=== PATIENT | male | born 1970 | race Caucasian/White ===

== ENCOUNTER 2018-10-05 17:40 | Observation (INO) | payer SELFPAY ==
[2018-10-05] VITALS (7 sets, daily range): BP systolic 136–162; BP diastolic 83–107
[~2018-10-05] VITALS: Ht 175.3 cm; Wt 82.7 kg
--- NOTE | ~2018-10-05 | HEMODYNAMI ---
PATIENT:SCARLETT CONTRERAS MEDICAL RECORD: [id number] : 70 LOCATION:[address] ADMISSION DATE: 10/05/18 Generatedon:10/06/20189:31 Patient name: SCARLETT CONTRERAS Patient #: [id number] SSN: : 1970 Date of study: 10/06/2018 Page: Of Hemodynamic Procedure Report Patient Data Patient Demographics Procedure consent was obtained First Name: SCARLETT Gender: Male Last Name: BEN : 1970 Patient #: [id number] Age: 47 year(s) Race: Unknown Additional ID: [id number] Contact details Address: [address] [place] [address] State: [place] City: [facility] Zip code: [address] Past Medical History Allergies: No known allergies Admission Admission Data Admission Date: 10/05/2018 Admission Time: 22:17 Room #: D2117 Lab Results Lab Result Date: 10/06/2018 Lab Result Time: 0:00 Biochemistry Name Units Result Min Max BUN mg/dl 16 --(---*)-- 7 18 Creatinine mg/dl 1.2 --(---*)-- 0.6 1.3 CBC Name Units Result Min Max Hemoglobin g/dl 16.8 --(---*)-- 13.5 17.5 Procedure Procedure Types Cath Procedure Diagnostic Procedure [facility] w/Coronaries PCI Procedure Coronary Stent Coronary Stent Initial Procedure Description Procedure Date Procedure Date: 10/06/2018 Procedure Start Time: 9:08 Procedure End Time: 9:30 Procedure Staff Name Function Justin Beasley MD Performing Physician Patricia Valentin RT Scrub Irma Hopkins RN Nurse Alexa Morales RT Monitor Procedure Data Cath Procedure Fluoroscopy Diagnostic fluoroscopy Total fluoroscopy Time: 5.2 time: 5.2 min min Diagnostic fluoroscopy Total fluoroscopy dose: 747 dose: 747 mGy mGy Contrast Material Contrast Material Type Amount (ml) Isovue 300 104 Entry Location Entry Primary Successful Side Size Upsize Upsize Entry Closure Succes sful Closure Location (Fr) 1 (Fr) 2 (Fr) Remarks Device Remarks Femoral Right 5 Fr 6 Fr Exoseal artery Short Estimated blood loss: 10 ml Diagnostic catheters Device Type Used For End Catheter Placement MULTIPACK JL 4.0 5Fr Procedure catheter MULTIPACK 3DRC 5Fr Procedure catheter MULTIPACK Pigtail 5 Fr Procedure catheter Procedure Complications No complications Procedure Medications Medication Administration Route Dosage 0.9% NaCl I.V. 100 ml/hr Oxygen etCO2 Nasal cannula 2 l/min Lidocaine 2% added to field 20 Heparin Flush Bag added to field 2 bags (1000units/500ml NS) Versed I.V. 2 mg Fentanyl I.V. 50 mcg Versed I.V. 2 mg Fentanyl I.V. 50 mcg Heparin Bolus I.V. 5000 units Plavix P.O. 75 mg Hemodynamics Rest HGB: 16.8 (g/dl) Heart Rate: 97 (bpm) Pressure Samples Time Site Value (mmHg) Purpose Heart Use Rate(bpm) 9:14 LV 108/2,1 Snapshot 97 9:14 AO 116/87(103) Pullback 99 Gradients Valve Time Site Site 2 Mean SEP/DFP Peak To Heart Use 1 (mmHg) (sec/min) Peak Rate (mmHg) (bpm) Aortic 9:14 LV AO 1 11 99 116/87(103) Calculations Valve P-P Mean Valve Index Valve Source Name Gradient Area Flow (cm2) Aortic 1 1 Snapshots Pre Cath Intra NCS Post Cath Vital Signs Time Heart Resp SPO2 etCO2 NIBP (mmHg) Rhythm Pain Sedation Rate (ipm) (%) (mmHg) Status Level (bpm) 9:01:00 97 16 99 37.3 142/90(110) NSR 0 (11) 10(A) , No pain 9:05:20 95 14 98 39.6 144/93(107) NSR 0 (11) 10(A) , No pain 9:09:36 92 17 96 42.6 140/92(112) NSR 0 (11) 10(A) , No pain 9:14:29 100 20 96 30.6 141/100(114) NSR 0 (11) 9(A) , No pain 9:18:47 94 13 97 35.8 138/100(117) NSR 0 (11) 9(A) , No pain 9:23:03 100 12 97 11.9 145/95(112) NSR 0 (11) 9(A) , No pain 9:27:23 95 10 98 11.2 145/97(115) NSR 0 (11) 10(A) , No pain Medications Time Medication Route Dose Verified Delivered Reason Notes Effectiveness by by 9:01:30 0.9% NaCl I.V. 100 Justin Irma used for ml/hr [place] [facility] procedure MD OROZCO 9:01:37 Oxygen etCO2 2 Justin Irma used for Nasal l/min [facility] procedure cannula MD OROZCO 9:01:42 Lidocaine 2% added 20ml Justin Anderson for local to vial [facility] anesthetic field MD CURRIE 9:01:46 Heparin Flush added 2 Justin Justin used for Bag to bags [facility] procedure (1000units/500ml field MD CURRIE NS) 9:05:12 Versed I.V. 2 mg Justin Irma for sedation St Torsten Hopkins MD RN 9:05:16 Fentanyl I.V. 50 Justin Irma for sedation mcg St Torsten Hopkins MD RN 9:09:50 Versed I.V. 2 mg Justin Irma for sedation St Torsten Hopkins MD RN 9:09:54 Fentanyl I.V. 50 Justin Irma for sedation mcg St Torsten Hopkins MD RN 9:17:14 Heparin Bolus I.V. 5000 Justin Irma for verifi ed units [facility] anticoagulation with Dr. CURRIE RN Azure 9:28:22 Plavix P.O. 75 mg Justin Irma for [place] [facility] antiplatelet RN therapy Procedure Log Time Note 8:43:35 Signed procedure consent form obtained from patient. 8:43:37 Diagnostic Cath status Elective 8:45:44 Patricia Valentin RT(R) sent for patient. Start room use. 8:54:21 Patient received from Med II to CCL 1 Alert and oriented. Tansferred to table in Supine position. 8:54:23 Warm blankets applied, and josselin hugger turned on for patient comfort. 8:54:23 Correct patient and procedure confirmed by team. 8:54:26 ECG and BP/O2 sat monitors applied to patient. 8:57:36 Pre-procedure instructions explained to patient. 8:57:38 Pre-op teaching completed and patient verbalized understanding. 8:57:46 Family unavailable. 8:57:51 Patient NPO since Midnight. 8:59:43 Vital chart was started 9:01:30 0.9% NaCl 100 ml/hr I.V. was administered by Irma Hopkins RN; used for procedure; 9:01:37 Oxygen 2 l/min etCO2 Nasal cannula was administered by Irma Hopkins RN; used for procedure; 9:01:42 Lidocaine 2% 20ml vial added to field was administered by Justin Beasley MD; for local anesthetic; 9:01:46 Heparin Flush Bag (1000units/500ml NS) 2 bags added to field was administered by Justin Beasley MD; used for procedure; 9:02:38 Patient allergic to No known allergies 9:02:41 Is the patient allergic to Iodine/contrast media? No. 9:02:43 Was the patient premedicated? Yes 9:02:44 Is patient on blood thinner?Yes 9:02:48 Patient diabetic? No. 9:02:59 Snore? Yes 9:03:01 Sleep apnea? No 9:03:03 Deviated septum? No 9:03:05 Opens mouth fully? Yes 9:03:07 Sticks out tongue? Yes 9:03:14 Dentures? Yes in tight 9:03:20 Patient pain scale 0/10 ?. 9:03:28 IV patent on arrival in left forearm with 0.[facility]% [facility]. 9:04:13 Lab Result : Creatinine 1.2 mg/dl 9:04:13 Lab Result : BUN 16 mg/dl 9:04:13 Lab Result : Hemoglobin 16.8 g/dl 9:04:17 Lab results completed and on chart. 9:04:21 Right groin area was prepped with chlora-prep and draped in sterile fashion 9:04:23 Alarms reviewed by R. N. 9:04:24 Sharps counted by scrub and verified by R.N. 9::26 Physician paged 9:04:26 Physician arrived 9::28 --------ALL STOP TIME OUT------ 9:04:30 Final Timeout: patient, procedure, and site verified with staff and physician. All members of the team are in agreement. 9:04:36 Right groin site verified by team. 9:04:40 Maximum allowable Isovue 300 dose 300ml. Physician notified. (300ml for normal creatinines. For patients with creatinine of 1.7 or higher multiply weight(kg) x 5 divided by creatinine.) 9:04:46 Fire Safety Assessment: A--An alcohol-based skin anteseptic being used preoperatively., C--Open oxygen or nitrous oxide is being used., D--An ESU, laser, or fiber-optic light is being used. 9:04:54 Physical assessment completed. ASA score P 2 - A patient with mild systemic disease as per Justin Beasley MD. 9:04:58 Sedation plan: IV Moderate Sedation Medication:Versed, Fentanyl 9:05:03 Use device set Femoral Dx 9:05:05 ACIST Syringe (18091) opened to sterile field. 9:05:05 Bag Decanter (2002S) opened to sterile field. 9:05:06 Medline Cath Pack ([id number]) opened to sterile field. 9:05:06 DIAGNOSTIC WIRE .035 260cm J wire (632197) opened to sterile field. 9:05:08 ACIST Hand Control (66975) opened to sterile field. 9:05:08 ACIST Manifold (58506) opened to sterile field. 9:05:08 DIAGNOSTIC Multipack 5Fr catheter set (RL5863) opened to sterile field. 9:05:12 Versed 2 mg I.V. was administered by Irma Hopkins RN; for sedation; 9:05:12 SHEATH 5FR [place] (PXG192) opened to sterile field. 9:05:16 Fentanyl 50 mcg I.V. was administered by Irma Hopkins RN; for sedation; 9:08:03 Procedure started. 9:08:03 Full Disclosure recording started 9:08:09 Local anesthetic to right femoral artery with Lidocaine 2% by Justin Beasley MD.INITIAL ACCESS ONLY 9:08:20 A 5 Fr sheath was inserted into the Right Femoral artery 9:09:45 J wire advanced. 9:09:50 Versed 2 mg I.V. was administered by Irma Hopkins RN; for sedation; 9:09:54 Fentanyl 50 mcg I.V. was administered by Irma Hopkins RN; for sedation; 9:10:37 A MULTIPACK JL 4.0 5Fr catheter was advanced over the wire and used for Procedure. 9:10:53 LCA angiography performed. 9:11:04 Catheter removed. 9:13:05 A MULTIPACK 3DRC 5Fr catheter was advanced over the wire and used for Procedure. 9:13:15 RCA angiography performed. 9:13:21 Catheter removed. 9:13:30 A MULTIPACK Pigtail 5 Fr catheter was advanced over the wire and used for Procedure. 9:14:30 EF : 55 % 9:15:05 Catheter removed. 9:16:39 SHEATH 6FR [place] (DYF069) opened to sterile field. 9:16:53 Sheath upsized to a 6 Fr Short. 9:17:14 Heparin Bolus 5000 units I.V. was administered by Irma Hopkins RN; for anticoagulation; verified with Dr. Mcdaniel 9:17:36 GUIDE 6FR HS I catheter (LA6HSI) opened to sterile field. 9:17:56 INFLATOR [facility]it BasixCompak (FJ0937) opened to sterile field. 9:17:57 WHISPER 300cm guide wire ([id number]) opened to sterile field. 9:18:09 6 Fr HS1 guide catheter was inserted over the wire 9:18:15 Whisper wire advanced. 9:18:17 Wire advanced across lesion. 9:20:41 Place stent Inflation Number: 1 A LARRY OTW 3.5 x 08 stent ([id number]) was prepped and advanced across the R PAV . The stent was deployed at 14 MARK for 0:23 (min:sec) . 9:22:26 Wire redirected to PLV. 9:24:41 Inflate balloon Inflation number: 2 A EUPHORA 2.0 x 12 Balloon ([id number]) was prepped and advanced across the R PAV , then inflated to 10 MARK for 0:11 (min:sec) . 9:25:56 Inflation number: 3 The EUPHORA 2.0 x 12 Balloon ([id number]) was reinflated across the R PAV , to 10 MARK for 0:16 (min:sec) . 9:26:48 Balloon removed over the wire. 9:26:49 Wire removed. 9:27:00 EXOSEAL 6Fr (EX600) opened to sterile field. 9:27:05 Guide catheter removed. 9:27:18 Sheath removed intact; hemostasis achieved with Exoseal to the Right Femoral artery. 9::22 Procedure ended.(Physican Out) :: Plavix 75 mg P.O. was administered by Irma Hopkins RN; for antiplatelet therapy; :: Fluoroscopy time 05.20 minutes. :: Fluoroscopy dose: 747 mGy 9:: Flurop Dose total: 747 9::32 Contrast amount:Isovue 300 104ml. 9::37 Insertion/operative site no bleeding no hematoma. 9::39 Post Procedure Pulses reassessed and unchanged 9::43 Post-procedure physical assessment completed. ASA score P 2 - A patient with mild systemic disease as per Justin Beasley MD. 9:29:06 Post procedure rhythm: unchanged. 9:29:11 Estimated blood loss: 10 ml 9::13 Post procedure instruction explained to patient.Patient verbalizes understanding. 9::28 Procedure type changed to Cath procedure, Diagnostic procedure, LHC, LHC w/Coronaries, PCI procedure, Coronary Stent, Coronary Stent Initial 9:29:30 Procedure and supply charges have been captured, reviewed, submitted and are correct. 9:29:57 Procedure Complication : No complications 9:30:02 Vital chart was stopped 9:30:06 Report given to Pre/Post Procedure Room. 9:30:11 Patient transfered to Pre/Post Procedure Room with Stretcher. 9:30:16 Procedure ended. 9:30:16 Full Disclosure recording stopped 9:30:21 End room use (Document Last) 9:30:34 ACC-PCI Only Patient was given prescriptions, or instructed by Justin Beasley MD to start/continue the following medications upon discharge: Plavix Intervention Summary Intervention Notes Time ActionType Lesion and Equipment Action# Pressure Duration Attributes Used 9:20:41 Place stent R PAV LARRY OTW 3.5 1 14 00:23 x 08 stent ([id number]) 9:24:41 Inflate R PAV EUPHORA 2.0 x 2 10 00:11 balloon 12 Balloon ([id number]) 9:25:56 Reinflate R PAV EUPHORA 2.0 x 3 10 00:16 balloon 12 Balloon ([id number]) Device Usage Item Name Manufacture Quantity Catalog Hospital Part Current Mini mal Lot# / Number Charge Number Stock Stock Serial# Code ACIST Syringe Acist 1 74016 100346 162270 963853 20 (53244) Medical Systems Inc Bag Decanter Microtek 1 732942 81525 472840 5 () Medical Inc. Medline Cath Medline 1 [id number] 935636 65201 212909 5 Pack ([id number]) DIAGNOSTIC St Jonny 1 140438 414197 556565 540707 30 WIRE .035 260cm J wire (073144) ACIST Hand Acist 1 53498 273520 530751 836419 5 Control Medical (96612) Systems Inc ACIST Acist 1 71529 605878 310234 585449 5 Manifold Medical (05674) Systems Inc DIAGNOSTIC Cardinal 1 AE6030 589812 54803 699205 30 Multipack 5Fr Health catheter set (FW0048) SHEATH 5FR Terumo 1 FJJ700 291384 300535 024302 5 [place] (MHG705) MULTIPACK JL Cardinal 1 247939 5 4.0 5Fr Health catheter MULTIPACK Cardinal 1 986392 5 3DRC 5Fr Health catheter MULTIPACK Cardinal 1 454608 5 Pigtail 5 Fr Health catheter SHEATH 6FR Terumo 1 THL041 169844 382204 219607 40 [place] (PTT823) GUIDE 6FR HS Medtronic 1 LA6HSI 780642 67271 336749 1 I catheter (LA6HSI) INFLATOR [facility] 1 GV8209 925450 698879 902005 15 [facility] BasixCompak (YX3794) WHISPER 300cm Baltazar 1 [id number] 329660 602110 937987 5 guide wire Vascular ([id number]) LARRY OTW 3.5 Medtronic 1 [id number] 489353 1774529 125327 5 [id number] x 08 stent ([id number]) EUPHORA 2.0 x Medtronic 1 [id number] 964661 219180 544297 5 [id number] 12 Balloon ([id number]) EXOSEAL 6Fr Cardinal 1 EX600 638331 870146 036897 10 (EX600) Health Signature Audit [place] Stage Time Signature Unsigned Intra-Procedure 10/06/2018 Alexa Morales 9:31:43 AM RT(R) Signatures Monitor : Alexa Morales Signature : RT Date : Time : [facility] [address] [place] [address]
[2018-10-05 18:35] LABS: BASOPHILS 0.6 % (0-2); EOSINOPHILS 1.5 % (0-7); HEMATOCRIT 46.5 % (42.0-54.0); HEMOGLOBIN 16.8 g/dL (13.5-17.5); IMMATURE GRANULOCYTES 0.3 % (0-5); LYMPHOCYTES 21.8 % (15-50); MCH 31.1 pg (26.0-34.0); MCHC 36.1 g/dL (31.0-37.0); MCV 86.1 fL (80.0-100.0); MEAN PLATELET VOLUME 10.8 fL (7.4-10.4); MONOCYTES 9.2 % (2-11); NEUTROPHILS 66.6 % (40-80); PLATELET COUNT 205 10x3/uL (130-400); RDW 12.1 % (11.5-14.5); WBC 10.7 10x3/uL (4.8-10.8)
[2018-10-05 18:48] LABS: ALBUMIN 4.4 g/dL (3.4-5.0); ALKALINE PHOSPHATASE 118 U/L (46-116); ALT (SGPT) 80 U/L (10-68); BILIRUBIN - TOTAL 0.71 mg/dL (0.2-1.3); CALC OSMOLALITY 283 mosm/kg (275-300); CARBON DIOXIDE 27.3 mmol/L (21.0-32.0); CHLORIDE - SERUM 103 mmol/L (98-107); CREATININE - SERUM 1.2 mg/dL (0.6-1.3); GLUCOSE 103 mg/dL (74-106); POTASSIUM - SERUM 3.7 mmol/L (3.5-5.1); PROTEIN - SERUM 8.1 g/dL (6.4-8.2); SODIUM 142 mmol/L (136-145); UREA NITROGEN 16 mg/dL (7-18); eGFR NON AFRICAN AMERICAN 69 mL/min (90-120)
[2018-10-05 18:57] LABS: INR 0.94 (0.85-1.17); PROTIME 12.1 SECONDS (11.6-15.0)
[2018-10-05 19:00] LABS: CKMB 2.2 U/L (0.0-3.6); CREATINE KINASE 151 UL (21-232); MAGNESIUM - SERUM 2.4 mg/dL (1.8-2.4); TROPONIN-I 0.026 ng/mL (0.000-0.060)
--- NOTE | 2018-10-05 19:00 | NUR ---
PT STATES PAIN 6/10 PRIOR TO FIRST SL NITRO, UNCHANGED WITH FIRST SL NITRO, PAIN REMAINED 6/10 FOLLOWING SECOND PRN NITRO. FOLLOWING THIRD SL PRN NITRO, PT STATES PAIN WORSE, NOW 7/10. TREATING PROVIDER NOTIFIED. PT ALSO C/O SUDDEN ONSET OF NAUSEA FOLLOWING THIRD PRN NITRO. EMESIS BAG PROVIDED, NO EMESIS PRODUCED, NAUSEA ONLY AT THIS TIME WELL WORSENING PAIN PREVIOUSLY MENTIONED. CALL LIGHT IN REACH, FAMILY AT THE BEDSIDE. PT REPOSITIONED MULTIPLE TIMES FOR COMFORT.
--- NOTE | 2018-10-05 19:14 | NUR ---
HAND OFF REPORT GIVEN TO ERNESTO AKBAR
[2018-10-06 02:43] VITALS: BP 142/78; Ht 175.3 cm; Wt 82.7 kg
[2018-10-06 04:54] VITALS: BP 146/86
--- NOTE | 2018-10-06 07:15 | NUR ---
RECEIVED PT IN BED AAOX4 RESP UNLABORED SKIN W/D COLOR WNL DENIES ANY CHEST DISCOMFORT AT THIS TIME
[2018-10-06 07:32] LABS: CKMB 47.2 U/L (0.0-3.6)
[2018-10-06 07:35] LABS: CREATINE KINASE 366 UL (21-232); TROPONIN-I 7.798 ng/mL (0.000-0.060)
[2018-10-06 08:54] VITALS: BP 137/83
--- NOTE | 2018-10-06 09:00 | NUR ---
TO FARROWING MANAGER VIA BED WITH CATH STAFF
--- NOTE | 2018-10-06 09:40 | NUR ---
RECEIVED CALL FROM COMBUSTION ENGINEER PT TO BE DISCHARGED FROM CATH HOLDING
--- NOTE | 2018-10-06 09:45 | NUR ---
PATIENT ARRIVED TO ROOM 3, PLACE ON , VSS. RIGHT GROIN DRESSING IS CDI, NO S/S OF BLEEDING OR HEMATOMA. SEE ASSESSMENT.
--- NOTE | 2018-10-06 09:47 | CN ---
PATIENT NAME:SCARLETT CONTRERAS MEDICAL RECORD: [id number] : 70 LOCATION:[address] ADMIT DATE: 10/05/18 ACCOUNT: [id number] CONSULTING PHYSICIAN: GEN JOEL MD REFERRING PHYSICIAN: GEN JOEL MD DATE OF CONSULTATION: 10/06/2018 HISTORY OF PRESENT ILLNESS: A 47-year-old gentleman with a known history of coronary artery disease, really has been quite healthy and never been to physician. He had onset of chest pain and pressure yesterday at work accompanied by shortness of breath and diaphoresis, presented to the ER, relieved with morphine and nitroglycerin. Subsequently, he was found to have elevated troponin consistent with NSTEMI. Does have inferior T-wave changes. We are asked to see him concerning his cardiovascular status. PAST MEDICAL HISTORY: Otherwise unremarkable. MEDICATIONS: None chronically. ALLERGIES: None known. SOCIAL HISTORY: Works fulltime, construction. Smokes about a pack a day. Nondrinker. No illicit drug use. Easily takes care of all of his ADLs. No set exercise program. REVIEW OF SYSTEMS: The patient reports easy bruising but reports no swollen glands. The patient reports no fever, no night sweats, no significant weight gain, no significant weight loss. No significant exercise tolerance. The patient reports no dry eyes, no irritation, no vision change. Patient reports no difficulty hearing and no ear pain. Patient reports no frequent nose bleeds or nose and sinus problems. Patient reports on arm pain on exertion. No shortness of breath while lying down. No history of heart murmur. Patient reports no cough, no wheezing or coughing up blood. Patient reports no abdominal pain, no vomiting. Normal appetite. No diarrhea and not vomiting blood. No nausea and no constipation. Patient reports no incontinence. No difficulty urinating. No hematuria. No increased frequency. Patient reports no muscle aches. No weakness, no arthralgias, no back pain. No swelling of the extremities. Patient reports no abnormal mole, no jaundice, no rashes. Reports no loss of consciousness. No weakness and no numbness. No seizures, dizziness, or headaches. The patient reports no depression, no sleep disturbance, feeling safe in a relationship and no alcohol abuse. Patient reports on fatigue. Reports no runny nose or sinus pressure. No itching, no hives, and no frequent sneezing. PHYSICAL EXAMINATION: GENERAL: Young gentleman, in no acute distress. VITAL SIGNS: Blood pressure 146/86, pulse 96 and regular. HEENT: Normocephalic, atraumatic. NECK: No bruits noted. HEART: Regular, II/ systolic ejection murmur. LUNGS: Good air excursion. ABDOMEN: Soft, nontender. EXTREMITIES: Pulses 2+. No edema. NEUROLOGIC: Grossly intact. CONSULT REPORT [id number] SCARLETT CONTRERAS DIAGNOSTIC DATA: ECG shows flipped T waves inferiorly. IMPRESSION: NSTEMI. PLAN: Plan for angiography, intervention based on above. TRANSINT:[id number] Voice Confirmation ID: [id number] DOCUMENT ID: [id number] GEN JOEL MD at 0947 CC: [id number] DICTATION DATE: 10/06/18 0852 ENDOSCOPY NURSE: 10/06/18 0909 ADM IN [place] [id number] [place] [id number]
[2018-10-06] MEDS ORDERED: LIPITOR40 MG PO (09:53)
[2018-10-06] MEDS ORDERED: PLAVIX75 MG PO (09:56)
[2018-10-06] MEDS ORDERED: ZEBETA PO (09:56)
[2018-10-06] MEDS ORDERED: BAYER CHEWABLE81 MG PO (09:57)
--- NOTE | 2018-10-06 10:00 | NUR ---
PATIENT RESTING, MOTHER AT BEDSIDE. RIGHT GROIN DRESSING IS CDI, NO S/S OF BLEEDING OR HEMATOMA. NO C/O PAIN, NUMBNESS, OR TINGLING. PATIENT TOLERATING PO FLUIDS. VSS ON 2L NC. WILL CONTINUE TO MONITOR.
--- NOTE | 2018-10-06 10:30 | NUR ---
PATIENT AWAKE, FAMILY AT BEDSIDE. VSS ON 2L NC. RIGHT GROIN DRESSING IS CDI, NO S/S OF BLEEDING OR HEMATOMA. NO C/O PAIN, NUMBNESS, OR TINGLING. TOLERATING PO FLUIDS AND FOOD, NO N/V.
--- NOTE | 2018-10-06 11:00 | NUR ---
PATIENT EATING ICE CREAM, FAMILY PRESENT AT BEDSIDE. VSS ON 1L NC. RIGHT GROIN DRESSING IS CDI, NO S/S OF BLEEDING OR HEMATOMA. WILL CONTINUE TO MONITOR.
--- NOTE | 2018-10-06 11:30 | NUR ---
PATIENT RESTING, VSS ON 1L NC. RIGHT GROIN DRESSING IS CDI, NO S/S OF BLEEDING OR HEMATOMA. FAMILY PRESENT AT BEDSIDE.
--- NOTE | 2018-10-06 12:00 | NUR ---
PATIENT C/O ACHING PAIN IN BACK, NORCO GIVEN ORDERED. VSS ON ROOM AIR. PATIENT AWAKE, FAMILY AT BEDSIDE. RIGHT GROIN DRESSING IS CDI, NO S/S OF BLEEDING OR HEMATOMA.
--- NOTE | 2018-10-06 12:30 | NUR ---
HEAD OF BED ELEVATED TO 30 DEGREES, RIGHT GROIN DRESSING IS CDI, NO S/S OF BLEEDING OR HEMATOMA. FAMILY AT BEDSIDE. VSS ON ROOM AIR. PATIENT STATES THAT PAIN IS "MUCH BETTER".
--- NOTE | 2018-10-06 13:00 | NUR ---
HEAD OF BED ELEVATED TO 60 DEGREES, RIGHT GROIN DRESSING IS CDI, NO S/S OF BLEEDING OR HEMATOMA. NO C/O PAIN, NUMBNESS, OR TINGLING. VSS ON ROOM AIR. FAMILY AT BEDSIDE. IV REMOVED.
--- NOTE | 2018-10-06 13:30 | NUR ---
WRITTEN AND VERBAL EDUCATION REGARDING DISCHARGE INSTRUCTIONS GIVEN TO PATIENT AND SPOUSE, ALL QUESTIONS ANSWERED, PATIENT VOICES UNDERSTANDING. RIGHT GROIN DRESSING IS CDI, NO S/S OF BLEEDING OR HEMATOMA.
--- NOTE | 2018-10-06 13:35 | NUR ---
PATIENT VOIDED WITHOUT DIFFICULTY. PATIENT TRANSPORTED VIA WHEELCHAIR TO CAR WITH SPOUSE DRIVING, ALL BELONGINGS WITH PATIENT.
--- NOTE | 2018-10-09 15:06 | OP ---
PATIENT NAME: SCARLETT CONTRERAS MEDICAL RECORD: [id number] :70 LOCATION:[address] [address] ADMISSION DATE:10/05/18 SURGEON: GEN JOEL MD DATE OF OPERATION: 10/06/2018 PROCEDURE: Left heart catheterization, selective coronary angiography, stenting, PTCA. FINDINGS: Left ventriculography 30-degree ROBERT view: Mild inferior basilar hypokinesis. Overall, function preserved at 50% or better. CORONARY ANATOMY: LEFT MAIN: Left main is free of disease. LAD: Free of disease in the diagonal system. CIRCUMFLEX: Free of disease in the marginal system. RIGHT CORONARY ARTERY: At the distal portion has about 80% stenosis, obviously infarct related artery. PLAN: Given ECG changes, focal wall motion on V-gram plan for intervention momentarily. DESCRIPTION OF PROCEDURE: A 5-English sheath was exchanged for a 6-English sheath. Hockey stick guide catheter provided good guide catheter support. A 300 cm Whisper wire placed across the tightly occluded right down this portion of the vessel. Stent deployed was a 3.5 x 12 Lance drug-eluting stent up to 14 atmospheres. This showed excellent resolution of 80% stenosis, no significant residual. However, there was snowplowing to a total occlusion of the PDA. We were able across the PDA through the stent strut with the indwelling Whisper wire. Then, using a 2.5 Euphora we inflated up to 10 and 12 atmospheres, reestablished good flow down the PDA. IMPRESSION: Successful stenting of the right coronary vessel, status post PTCA to the PDA. Sheath was closed with ExoSeal device. Plavix was previously loaded. TRANSINT:[id number] Voice Confirmation ID: [id number] DOCUMENT ID: [id number] GEN JOEL MD at 1506 CC: [id number] DICTATION DATE: 10/06/18 0932 CRIME PREVENTION WORKER: 10/06/18 1014 DIS IN 10/06/18 [place] [address] [place] [address]
--- NOTE | 2018-10-09 15:06 | DS ---
PATIENT:SCARLETT CONTRERAS :70 MEDICAL RECORD: [id number] DISCHARGE SUMMARY ADMISSION DATE: 10/05/18 DISCHARGE DATE: 10/06/18 DATE OF ADMISSION: 10/05/2018 DATE OF DISCHARGE: 10/06/2018 IMPRESSION: [id number] myocardial infarction. BRIEF HISTORY AND HOSPITAL COURSE: A 47-year-old gentleman admitted with NSTEMI. Underwent stenting of the right coronary. Started on statin, dual antiplatelet therapy, and beta-blockade. Discharged to home in good condition. ACTIVITY: As tolerated. DIET: AHA diet. TRANSINT:[id number] Voice Confirmation ID: [id number] DOCUMENT ID: [id number] GEN JOEL MD at 1506 CC: [id number] DICTATION DATE: 10/06/18 0949 MATERIALS CLERK: 10/07/18 0037 DIS IN 10/06/18 [facility] [address] [place] [address]
== END 2018-10-06 13:35 | disposition home or self-care (01) ==
LOC: D.ER 17:40 → D.M2 22:17 → D.CLR 22:17 → D.M2 22:17 → OBSVTIME 22:17 → D.CLR 10-06 09:45
PROVIDERS: Emergency Medicine; Family Medicine; ADMIT Internal Medicine Interventional Cardiology; ATTEND Internal Medicine Interventional Cardiology
DX: I21.4 Non-ST elevation (NSTEMI) myocardial infarction (principal)

== ENCOUNTER 2018-11-24 13:12 | Emergency (ER) | payer MEDICAID ==
[~2018-11-24] VITALS: Ht 175.3 cm; Wt 86.4 kg
[~2018-11-24 13:12] MED LIST: BAYER CHEWABLE81 MG PO; LIPITOR40 MG PO; PLAVIX75 MG PO; ZEBETA PO
[2018-11-24 13:13] VITALS: Ht 175.3 cm; Wt 86.4 kg
[2018-11-24 13:59] LABS: BASOPHILS 0.2 % (0-2); EOSINOPHILS 1.5 % (0-7); HEMATOCRIT 45.2 % (42.0-54.0); HEMOGLOBIN 16.5 g/dL (13.5-17.5); IMMATURE GRANULOCYTES 0.2 % (0-5); LYMPHOCYTES 15.5 % (15-50); MCH 30.9 pg (26.0-34.0); MCHC 36.5 g/dL (31.0-37.0); MCV 84.6 fL (80.0-100.0); MEAN PLATELET VOLUME 10.7 fL (7.4-10.4); MONOCYTES 8.3 % (2-11); NEUTROPHILS 74.3 % (40-80); PLATELET COUNT 209 10x3/uL (130-400); RBC 5.34 10x6/uL (4.20-6.10); RDW 12.1 % (11.5-14.5); WBC 13.3 10x3/uL (4.8-10.8)
[2018-11-24 14:03] LABS: ALBUMIN 3.6 g/dL (3.4-5.0); ALKALINE PHOSPHATASE 116 U/L (46-116); ALT (SGPT) 44 U/L (10-68); BILIRUBIN - TOTAL 1.08 mg/dL (0.2-1.3); CALC OSMOLALITY 276 mosm/kg (275-300); CALCIUM 8.6 mg/dL (8.5-10.1); CARBON DIOXIDE 24.6 mmol/L (21.0-32.0); CHLORIDE - SERUM 105 mmol/L (98-107); CREATININE - SERUM 0.9 mg/dL (0.6-1.3); GLUCOSE 135 mg/dL (74-106); POTASSIUM - SERUM 3.9 mmol/L (3.5-5.1); PROTEIN - SERUM 6.5 g/dL (6.4-8.2); SODIUM 138 mmol/L (136-145); UREA NITROGEN 11 mg/dL (7-18); eGFR NON AFRICAN AMERICAN > 90 mL/min (90-120)
[2018-11-24 16:37] LABS: APPEARANCE HAZY (CLEAR); COLOR BROWN (YELLOW); GLUCOSE NEGATIVE (NEGATIVE); NITRITE NEGATIVE (NEGATIVE); PROTEIN 2+ mg/dL (NEGATIVE)
[2018-11-24 16:38] LABS: BILIRUBIN NEGATIVE (NEGATIVE); KETONE MODERATE mg/dL (NEGATIVE); UROBILINOGEN NORMAL (NORMAL)
[2018-11-24 16:39] LABS: BACTERIA FEW /hpf (NONE SEEN); RED CELLS - URINE >50 /hpf (0-5); WHITE CELLS - URINE 0-5 /hpf (0-5)
[2018-11-24] MEDS ORDERED: FLOMAX0.4 MG PO (17:09)
[2018-11-24] MEDS ORDERED: TORADOL10 MG PO (17:09)
[2018-11-24] MEDS ORDERED: ZOFRAN8 MG PO (17:09)
[2018-11-24 18:11] VITALS: BP 187/88
== END 2018-11-24 18:11 | disposition home or self-care (01) ==
LOC: D.ER 13:12
PROVIDERS: Family Medicine
DX: N20.0 Calculus of kidney (principal); R10.9 Unspecified abdominal pain; K46.9 Unspecified abdominal hernia without obstruction or gangrene; F17.200 Nicotine dependence, unspecified, uncomplicated; I10 Essential (primary) hypertension

== ENCOUNTER 2020-08-12 08:02 | Emergency (ER) | payer MEDICAID ==
[~2020-08-12] VITALS: Ht 175.3 cm; Wt 84.1 kg
[~2020-08-12 08:02] MED LIST changes: +FLOMAX0.4 MG PO; +TORADOL10 MG PO; +ZOFRAN8 MG PO
[2020-08-12 08:10] VITALS: Ht 175.3 cm; Wt 84.1 kg
[2020-08-12 08:59] LABS: CALC OSMOLALITY 280 mosm/kg (275-300); CHLORIDE - SERUM 106 mmol/L (98-107); GLUCOSE 135 mg/dL (74-106); POTASSIUM - SERUM 3.8 mmol/L (3.5-5.1); SODIUM 139 mmol/L (136-145); UREA NITROGEN 15 mg/dL (7-18); eGFR NON AFRICAN AMERICAN 84 mL/min (90-120)
[2020-08-12 09:04] LABS: ALBUMIN 3.6 g/dL (3.4-5.0); ALKALINE PHOSPHATASE 113 U/L (30-120); ALT (SGPT) 78 U/L (10-68); BILIRUBIN - TOTAL 0.36 mg/dL (0.2-1.3); LIPASE 102 U/L (73-393); PROTEIN - SERUM 6.9 g/dL (6.4-8.2)
[2020-08-12 09:53] LABS: BASOPHILS 0.5 % (0-2); EOSINOPHILS 2.1 % (0-7); HEMATOCRIT 46.6 % (42.0-54.0); HEMOGLOBIN 16.2 g/dL (13.5-17.5); IMMATURE GRANULOCYTES 0.4 % (0-5); LYMPHOCYTE ABS# 1.71 10x3/uL (1.32-3.57); LYMPHOCYTES 18.6 % (15-50); MCH 30.2 pg (26.0-34.0); MCHC 34.8 g/dL (31.0-37.0); MCV 86.9 fL (80.0-100.0); MEAN PLATELET VOLUME 11.4 fL (7.4-10.4); MONOCYTES 8.5 % (2-11); NEUTROPHIL ABS# 6.43 10x3/uL (1.78-5.38); NEUTROPHILS 69.9 % (40-80); PLATELET COUNT 190 10x3/uL (130-400); RBC 5.36 10x6/uL (4.20-6.10); RDW 12.1 % (11.5-14.5); WBC 9.2 10x3/uL (4.8-10.8)
[2020-08-12] MEDS ORDERED: FLOMAX0.4 MG PO (10:47)
[2020-08-12] MEDS ORDERED: ZOFRAN ODT4 MG/UDTAB PO (10:48)
[2020-08-12] MEDS ORDERED: HYDROCODONE-AC1 EAC2 PO (10:48)
[2020-08-12 11:25] VITALS: BP 141/96
== END 2020-08-12 11:52 | disposition home or self-care (01) ==
LOC: D.ER 08:02
PROVIDERS: Family Medicine
DX: N20.1 Calculus of ureter (principal); I10 Essential (primary) hypertension; R10.31 Right lower quadrant pain